=== PATIENT | female | born 1980 | race Caucasian/White ===

== ENCOUNTER 2019-08-28 15:49 | Emergency (ER) | payer BC ==
--- NOTE | 2019-08-28 15:52 | ERPHSYRPT ---
- History of Present Illness Time Seen by Provider: 08/28/19 15:52 Historian: patient, family Exam Limitations: no limitations Physician History: This is a 39-year-old female who presents with nausea vomiting headache muscle aches and pains, fatigue and intermittent subjective fever. Patient's family had similar symptoms over the last couple days. They had headache body aches and diarrhea. Because of the same symptoms and the new vomiting in this patient, she came in to be evaluated. The patient has been taking Tylenol and ibuprofen but cannot keep it down and is not helping her body aches and pains. The patient and her entire family were COVID tested earlier today. Timing/Duration: today Quality: aching Abdominal Pain Onset Location: other (Generalized body aches and pains) Pain Radiation: no radiation Severity of Pain-Max: moderate Severity of Pain-Current: moderate (For: SD) Associated Symptoms: loss of appetite, nausea, vomiting Previous symptoms: no prior history Allergies/Adverse Reactions: No Known Drug Allergies Allergy (Verified 08/28/19 16:10) Home Medications: No Home Meds [No Home Meds] 1 ea [facility] 06/11/13 [History] Hx Tetanus, Diphtheria Vaccination/Date Given: Yes Hx Influenza Vaccination/Date Given: No Hx Pneumococcal Vaccination/Date Given: No Travel Risk - International Travel Have you traveled outside of the country in past 3 weeks: No - Coronavirus Screening Are you exhibiting any of the following symptoms?: Yes Symptoms: Fever, Vomiting/Diarrhea, Headaches/Body Aches/Fatigue - Review of Systems Constitutional: Fever, Weakness Eyes: No Symptoms Ears, Nose, & Throat: No Symptoms Respiratory: No Symptoms Cardiac: No Symptoms Abdominal/Gastrointestinal: Nausea, Vomiting, Diarrhea Genitourinary Symptoms: No Symptoms Musculoskeletal: Arthralgias, Myalgias Skin: No Symptoms Neurological: No Symptoms Psychological: No Symptoms Endocrine: No Symptoms Hematologic/Lymphatic: No Symptoms Immunological/Allergic: No Symptoms All Other Systems: Reviewed and Negative - Past Medical History Pertinent Past Medical History: Yes Neurological History: No Pertinent History ENT History: No Pertinent History Cardiac History: No Pertinent History Respiratory History: No Pertinent History Endocrine Medical History: No Pertinent History Musculoskeletal History: No Pertinent History GI Medical History: No Pertinent History History: No Pertinent History Psycho-Social History: No Pertinent History Female Reproductive Disorders: No Pertinent History Other Medical History: OVARIAN CYST - Past Surgical History Past Surgical History: No Neuro Surgical History: No Pertinent History Cardiac: No Pertinent History Respiratory: No Pertinent History Gastrointestinal: No Pertinent History Genitourinary: No Pertinent History Musculoskeletal: No Pertinent History Female Surgical History: No Pertinent History - Social History Smoking Status: Never smoker Exposure to second hand smoke: No Drug Use: none Patient Lives Alone: No - Nursing Vital Signs Nursing Vital Signs: Initial Vital Signs Temperature 98.4 F 08/28/19 16:01 Pain Scale Pain Intensity 0 - Physical Exam General Appearance: mild distress, alert, anxiety Eye Exam: PERRL/EOMI, eyes nml inspection Ears, Nose, Throat Exam: normal ENT inspection, moist mucous membranes Neck Exam: normal inspection, non-tender, supple, full range of motion Respiratory Exam: normal breath sounds, lungs clear, airway intact, No chest tenderness, No respiratory distress Cardiovascular Exam: regular rate/rhythm, normal heart sounds, normal peripheral pulses Gastrointestinal/Abdomen Exam: soft, normal bowel sounds, No tenderness Pelvic Exam: not done Rectal Exam: not done Back Exam: normal inspection, normal range of motion, No CVA tenderness, No vertebral tenderness Extremity Exam: normal inspection, normal range of motion, pelvis stable Neurologic Exam: alert, oriented x 3, cooperative, director of academic II-XII nml as tested, normal mood/affect, nml cerebellar function, nml station & gait, sensation nml Skin Exam: normal color, warm, dry Lymphatic Exam: No adenopathy SpO2 Interpretation: normal O2 Delivery: Room Air Ordered Tests: Active Orders 24 hr Category Date Time Status IV Insertion STAT Care 08/28/19 16:12 Active AMYLASE Stat Lab 08/28/19 16:12 Completed CBC W DIFF Stat Lab 08/28/19 16:12 Completed CMP Stat Lab 08/28/19 16:12 Completed CULTURE,URINE Stat Lab 08/28/19 17:40 Received LIPASE Stat Lab 08/28/19 16:12 Completed Lactic Acid Stat Lab 08/28/19 16:12 Completed Lactic Acid Stat Lab 08/28/19 18:33 Received [place] Screen Stat Lab 08/28/19 Completed UA W/RFX UR CULTURE Stat Lab 08/28/19 17:40 Completed Medication Summary Discontinued Medications Generic Name Dose Route Start Last Admin Trade Name Freq PRN Reason Stop Dose Admin Hydromorphone HCl 1 mg 08/28/19 16:12 08/28/19 16:37 Hydromorphone 1 Mg/Ml Ampule IV 08/28/19 16:13 1 mg STAT ONE Administration Hydromorphone HCl Confirm 08/28/19 16:35 Hydromorphone 1 Mg/Ml Ampule Administered 08/28/19 16:36 Dose 1 mg .ROUTE .STK-MED ONE Sodium Chloride 1,000 mls @ 999 mls/hr 08/28/19 16:12 08/28/19 17:47 Sodium Chloride 0.9% 1000 Ml IV 08/28/19 17:12 Infused .Q1H1M STA Infusion Sodium Chloride Confirm 08/28/19 16:35 Sodium Chloride 0.9% 1000 Ml Administered 08/28/19 16:36 Dose 1,000 mls @ ud .ROUTE .STK-MED ONE Sodium Chloride 1,000 mls @ 999 mls/hr 08/28/19 17:03 08/28/19 18:58 Sodium Chloride 0.9% 1000 Ml IV 08/28/19 18:03 Infused .Q1H1M STA Infusion Sodium Chloride Confirm 08/28/19 17:44 Sodium Chloride 0.9% 1000 Ml Administered 08/28/19 17:45 Dose 1,000 mls @ ud .ROUTE .STK-MED ONE Ondansetron HCl 4 mg 08/28/19 16:12 08/28/19 16:36 Zofran 4 Mg/2 Ml Vial IV 08/28/19 16:13 4 mg STAT ONE Administration Ondansetron HCl Confirm 08/28/19 16:34 Zofran 4 Mg/2 Ml Vial Administered 08/28/19 16:35 Dose 4 mg .ROUTE .STK-MED ONE Potassium Chloride 10 meq 08/28/19 18:14 08/28/19 18:30 Klor Con 10 Meq PO 08/28/19 18:15 10 meq STAT ONE Administration Potassium Chloride Confirm 08/28/19 18:29 Klor Con 10 Meq Administered 08/28/19 18:30 Dose 10 meq PO .STK-MED ONE Lab/Rad Data: Laboratory Result Diagrams 08/28/19 16:12 08/28/19 16:12 Laboratory Results 08/28/19 08/28/19 08/28/19 Range/Units Unknown 17:40 16:50 WBC (4.0-10.5) K/mm3 RBC (4.1-5.4) M/mm3 Hgb (12.0-16.0) gm/dl Hct (35-47) % MCV (78-100) fl MCH (26-32) pg MCHC (32-36) g/dl RDW (11.5-14.0) % Plt Count (150-450) K/mm3 MPV (7.5-11.0) fl Gran % (36.0-66.0) % Eos # (Auto) (0-0.5) Absolute Lymphs (auto) (1.0-4.6) Absolute Monos (auto) (0.0-1.3) Lymphocytes % (24.0-44.0) % Monocytes % (0.0-12.0) % Eosinophils % (0.00-5.0) % Basophils % (0.0-0.4) % Absolute Granulocytes (1.4-6.9) Basophils # (0-0.4) Sodium (137-145) mmol/L Potassium (3.5-5.1) mmol/L Chloride (98-107) mmol/L Carbon Dioxide (22-30) mmol/L Anion Gap (5-15) MEQ/L BUN (7-17) mg/dL Creatinine (0.52-1.04) mg/dL Estimated GFR ML/MIN Glucose (74-106) mg/dL Lactic Acid (0.4-2.0) Calcium (8.4-10.2) mg/dL Total Bilirubin (0.2-1.3) mg/dL AST (14-36) U/L ALT (0-35) U/L Alkaline Phosphatase (38-126) U/L Serum Total Protein (6.3-8.2) g/dL Albumin (3.5-5.0) g/dL Amylase (30-110) U/L Lipase (23-300) U/L Urine Color EMMA (YELLOW) Urine Appearance SLIGHTLY CLOUDY (CLEAR) Urine pH 5.0 (5-6) Ur Specific [place] 1.029 (1.005-1.025) Urine Protein 30 (Negative) Urine Ketones SMALL (NEGATIVE) Urine Blood MODERATE (0-5) Stanley/ul Urine Nitrite NEGATIVE (NEGATIVE) Urine Bilirubin NEGATIVE (NEGATIVE) Urine Urobilinogen NEGATIVE (0-1) mg/dL Ur Leukocyte Esterase NEGATIVE (NEGATIVE) Urine WBC (Auto) 3-5 (0-5) /HPF Urine RBC (Auto) 6-10 (0-2) /HPF U Epithel Cells (Auto) RARE (FEW) /HPF Urine Bacteria (Auto) FEW (NEGATIVE) /HPF Urine Mucus (Auto) SLIGHT (NEGATIVE) /HPF Urine Culture Reflexed YES (NO) Urine Glucose NEGATIVE (NEGATIVE) mg/dL Monoscreen NEGATIVE (Negative) Influenza Type A Ag NEGATIVE (NEGATIVE) Influenza Type B Ag NEGATIVE (NEGATIVE) RSV (PCR) NEGATIVE (Negative) 08/28/19 08/28/19 08/28/19 Range/Units 16:12 16:12 16:12 WBC 13.7 H (4.0-10.5) K/mm3 RBC 4.30 (4.1-5.4) M/mm3 Hgb 14.0 (12.0-16.0) gm/dl Hct 41.4 (35-47) % MCV 96.3 (78-100) fl MCH 32.6 H (26-32) pg MCHC 33.8 (32-36) g/dl RDW 12.1 (11.5-14.0) % Plt Count 226 (150-450) K/mm3 MPV 10.5 (7.5-11.0) fl Gran % 89.0 H (36.0-66.0) % Eos # (Auto) 0.01 (0-0.5) Absolute Lymphs (auto) 0.71 L (1.0-4.6) Absolute Monos (auto) 0.76 (0.0-1.3) Lymphocytes % 5.2 L (24.0-44.0) % Monocytes % 5.6 (0.0-12.0) % Eosinophils % 0.1 (0.00-5.0) % Basophils % 0.1 (0.0-0.4) % Absolute Granulocytes 12.18 H (1.4-6.9) Basophils # 0.02 (0-0.4) Sodium 134 L (137-145) mmol/L Potassium 3.3 L (3.5-5.1) mmol/L Chloride 104 (98-107) mmol/L Carbon Dioxide 22 (22-30) mmol/L Anion Gap 12.0 (5-15) MEQ/L BUN 9 (7-17) mg/dL Creatinine 0.50 L (0.52-1.04) mg/dL Estimated GFR > 60.0 ML/MIN Glucose 119 H (74-106) mg/dL Lactic Acid 2.4 H (0.4-2.0) Calcium 10.0 (8.4-10.2) mg/dL Total Bilirubin 0.80 (0.2-1.3) mg/dL AST 35 (14-36) U/L ALT 28 (0-35) U/L Alkaline Phosphatase 77 (38-126) U/L Serum Total Protein 7.4 (6.3-8.2) g/dL Albumin 3.9 (3.5-5.0) g/dL Amylase 52 (30-110) U/L Lipase 19 L (23-300) U/L Urine Color (YELLOW) Urine Appearance (CLEAR) Urine pH (5-6) Ur Specific [place] (1.005-1.025) Urine Protein (Negative) Urine Ketones (NEGATIVE) Urine Blood (0-5) Stanley/ul Urine Nitrite (NEGATIVE) Urine Bilirubin (NEGATIVE) Urine Urobilinogen (0-1) mg/dL Ur Leukocyte Esterase (NEGATIVE) Urine WBC (Auto) (0-5) /HPF Urine RBC (Auto) (0-2) /HPF U Epithel Cells (Auto) (FEW) /HPF Urine Bacteria (Auto) (NEGATIVE) /HPF Urine Mucus (Auto) (NEGATIVE) /HPF Urine Culture Reflexed (NO) Urine Glucose (NEGATIVE) mg/dL Monoscreen (Negative) Influenza Type A Ag (NEGATIVE) Influenza Type B Ag (NEGATIVE) RSV (PCR) (Negative) - Progress Progress: improved Progress Note: 08/28/19 18:27 Patient states that she is feeling much better. She wants something to drink. Counseled pt/family regarding: lab results, diagnosis, need for follow-up - Departure Departure Disposition: Home Clinical Impression: Nausea & vomiting, Hypokalemia, Mild dehydration Condition: Stable Critical Care Time: No Referrals: DOCTOR,NO FAMILY [Primary Care Provider] - Additional Instructions: Drink plenty of fluids. Clear liquid diet and advance slowly over the next 12 to 24 hours. Quarantine yourself until your COVID-19 test results come back. Return to the emergency department if your symptoms worsen Prescriptions: Ondansetron ODT 4 MG [Zofran Odt 4 mg] 4 mg PO Q6H PRN PRN #10 tab.rapdis PRN Reason: Vomiting
[2019-08-28] MEDS ORDERED: Sodium Chloride 0.9% 1000 ML 1,000 ML IV STA ×2 (16:12→17:03)
[2019-08-28] MEDS ORDERED: Hydromorphone 1 mg/ml Ampule IV ONE (16:12)
[2019-08-28] MEDS ORDERED: Zofran 4 MG/2 ML VIAL IV ONE (16:12)
[2019-08-28] MEDS ORDERED: Zofran 4 MG/2 ML VIAL ONE (16:34)
[2019-08-28] MEDS ORDERED: Sodium Chloride 0.9% 1000 ML 1,000 ML ONE ×2 (16:35→17:44)
[2019-08-28] MEDS ORDERED: Hydromorphone 1 mg/ml Ampule ONE (16:35)
[2019-08-28 16:41] LABS: Absolute Neutrophil Ct (ANC) 12.18 (1.4-6.9); BASOPHIL % 0.1 % (0.0-0.4); Basophil (Absolute #) 0.02 (0-0.4); Eosinophil % 0.1 % (0.00-5.0); Eosinophil (Absolute #) 0.01 (0-0.5); Hematocrit 41.4 % (35-47); Lymphocyte (Absolute #) 0.71 (1.0-4.6); Lymphocytes % 5.2 % (24.0-44.0); Mean Cell Volume 96.3 fl (78-100); Mean Corpuscular Hemoglobin 32.6 pg (26-32); Mean Corpuscular Hgb Concent. 33.8 g/dl (32-36); Mean Platelet Volume 10.5 fl (7.5-11.0); Monocyte (Absolute #) 0.76 (0.0-1.3); Monocytes % 5.6 % (0.0-12.0); Platelet Count 226 K/mm3 (150-450); Red Cell Distribution Width 12.1 % (11.5-14.0); White Blood Count 13.7 K/mm3 (4.0-10.5)
[2019-08-28 16:52] LABS: ALBUMIN 3.9 g/dL (3.5-5.0); ALKALINE PHOSPHATASE 77 U/L (38-126); AMYLASE 52 U/L (30-110); BLOOD UREA NITROGEN 9 mg/dL (7-17); CHLORIDE 104 mmol/L (98-107); Carbon Dioxide 22 mmol/L (22-30); Glucose 119 mg/dL (74-106); LIPASE 19 U/L (23-300); Potassium 3.3 mmol/L (3.5-5.1); SGOT/AST 35 U/L (14-36); SGPT/ALT 28 U/L (0-35); SODIUM 134 mmol/L (137-145); Total Protein 7.4 g/dL (6.3-8.2)
[2019-08-28 17:05] LABS: INFLUENZA A NEGATIVE (NEGATIVE); INFLUENZA B NEGATIVE (NEGATIVE); RESPIRATORY SYNCTIAL VIRUS NEGATIVE (Negative)
[2019-08-28 18:01] LABS: Appearance SLIGHTLY CLOUDY (CLEAR); Bacteria FEW /HPF (NEGATIVE); Bilirubin NEGATIVE (NEGATIVE); Blood MODERATE Ery/ul (0-5); Epithelial Cells RARE /HPF (FEW); Glucose NEGATIVE (NEGATIVE); Ketones SMALL (NEGATIVE); Leukocyte Esterase NEGATIVE (NEGATIVE); Mucus SLIGHT /HPF (NEGATIVE); Nitrite NEGATIVE (NEGATIVE); Protein,Urine Dip 30 (Negative); Specific Gravity 1.029 (1.005-1.025); Urobilinogen NEGATIVE mg/dL (0-1)
[2019-08-28] MEDS ORDERED: Klor Con 10 MEQ PO ONE ×2 (18:14→18:29)
[2019-08-28 19:08] VITALS: BP 124/83; PULSE 83; O2SAT 99
== END 2019-08-28 19:19 | disposition home or self-care (01) ==
LOC: ED 15:49
DX: R11.2 Nausea with vomiting, unspecified (principal); E87.6 Hypokalemia; E86.0 Dehydration
CPT/HCPCS: 36000; 36415; 80053; 81001; 82150; 83605; 83690; 85025; 86308; 87086; 87631; 96360; 96361; 96374; 96375; 99284; J1170; J2405; A9270-GY